=== PATIENT | female | born 1990 | race Caucasian/White ===

== ENCOUNTER 2021-01-16 01:35 | Emergency (ER) | payer OTHER ==
[~2021-01-16 01:35] MED LIST: OMNICEF 300 MG300 MG PO; PYRIDIUM100 MG PO; ZOFRAN4 MG PO
[2021-01-16 03:40] LABS: HEMOGLOBIN 15.4 gm/dl (12.3-15.3); RED BLOOD COUNT 5.24 M/UL (4.00-5.10); WHITE BLOOD COUNT 15.2 K/UL (4.5-11.0)
[2021-01-16 04:02] LABS: BUN/CREATININE RATIO 13 (0-10)
[2021-01-16] MEDS ORDERED: CEPHALEXIN500 M1 PO (08:40)
== END 2021-01-16 09:48 | disposition home or self-care (01) ==
LOC: ER1 01:35
PROVIDERS: Physician Assistant
DX: O23.41 Unspecified infection of urinary tract in pregnancy, first trimester (principal); O99.331 Smoking (tobacco) complicating pregnancy, first trimester; F17.290 Nicotine dependence, other tobacco product, uncomplicated; Z3A.01 Less than 8 weeks gestation of pregnancy; Z90.49 Acquired absence of other specified parts of digestive tract; Z88.5 Allergy status to narcotic agent; Z88.6 Allergy status to analgesic agent
CPT/HCPCS: 76830; 80053; 81001; 83690; 83735; 84702; 85025; 87086; 96374; 96375; 99284; J0696; J1200; J2765

== ENCOUNTER 2021-08-04 16:27 | Outpatient (CLI) | payer BC, OTHER ==
[~2021-08-04 16:27] MED LIST changes: +CEPHALEXIN500 M1 PO
[2021-08-04 18:37] LABS: HEMOGLOBIN 11.5 gm/dl (12.3-15.3); RED BLOOD COUNT 4.22 M/UL (4.00-5.10); WHITE BLOOD COUNT 14.6 K/UL (4.5-11.0)
[2021-08-04 18:58] LABS: BUN/CREATININE RATIO 11 (0-10)
== END 2021-08-04 19:41 | disposition home or self-care (01) ==
LOC: GENOP 16:27
PROVIDERS: Obstetrics & Gynecology
DX: O99.891 Other specified diseases and conditions complicating pregnancy (principal); O99.283 Endocrine, nutritional and metabolic diseases complicating pregnancy, third trimester; O99.343 Other mental disorders complicating pregnancy, third trimester; F32.A Depression, unspecified; E28.2 Polycystic ovarian syndrome; R10.2 Pelvic and perineal pain; R42 Dizziness and giddiness; Z3A.34 34 weeks gestation of pregnancy
CPT/HCPCS: 36415; 80053; 81001; 85025; G0463

== ENCOUNTER 2021-08-11 09:58 | Outpatient (CLI) | payer BC, OTHER | END 2021-08-11 12:44 | disposition home or self-care (01) | LOC: GENOP 09:58 | DX: O36.8330 Maternal care for abnormalities of the fetal heart rate or rhythm, third trimester, not applicable or unspecified (principal); O10.913 Unspecified pre-existing hypertension complicating pregnancy, third trimester; O99.613 Diseases of the digestive system complicating pregnancy, third trimester; K92.9 Disease of digestive system, unspecified; Z87.440 Personal history of urinary (tract) infections; Z88.5 Allergy status to narcotic agent; Z3A.35 35 weeks gestation of pregnancy | CPT/HCPCS: G0463 ==

== ENCOUNTER 2021-08-28 05:22 | Inpatient (IN) | payer BC, OTHER ==
[~2021-08-28] VITALS: Ht 167.6 cm; Wt 94.3 kg
[2021-08-28 05:55] LABS: HEMOGLOBIN 12.2 gm/dl (12.3-15.3); RED BLOOD COUNT 4.43 M/UL (4.00-5.10); WHITE BLOOD COUNT 13.6 K/UL (4.5-11.0)
[2021-08-28] MEDS ORDERED: TRANDATE 100 M100 MG PO (06:10)
[2021-08-28] MEDS ORDERED: OMEPRAZOLE20 MG PO (06:10)
[2021-08-28] MEDS ORDERED: PRENATAL VITAM1 EAC8 PO (06:10)
[2021-08-28] MEDS ORDERED: ASPIRIN EC81 MG PO (06:11)
[2021-08-28 06:22] LABS: BUN/CREATININE RATIO 13 (0-10)
[2021-08-28] MEDS ORDERED: IBUPROFEN600 MG PO (09:32)
[2021-08-28] MEDS ORDERED: ENDOCET 5-3251 EACH PO (09:32)
[2021-08-28] MEDS ORDERED: COLACE 100MG C100 MG PO (09:32)
[2021-08-29 03:19] LABS: HEMOGLOBIN 11.3 gm/dl (12.3-15.3)
== END 2021-08-30 18:28 | disposition home or self-care (01) | DRG 788 ==
LOC: OB 05:22
PROVIDERS: ADMIT Obstetrics & Gynecology
PROC: 10D00Z1 Extraction of Products of Conception, Low, Open Approach (ICD-10-PCS; principal; 2021-08-28 09:22)
PROC: 3E0234Z Introduction of Serum, Toxoid and Vaccine into Muscle, Percutaneous Approach (ICD-10-PCS; 2021-08-30)
DX: O34.211 Maternal care for low transverse scar from previous cesarean delivery (principal); O13.4 Gestational [pregnancy-induced] hypertension without significant proteinuria, complicating childbirth; O99.284 Endocrine, nutritional and metabolic diseases complicating childbirth; Z20.822 Contact with and (suspected) exposure to COVID-19; O99.344 Other mental disorders complicating childbirth; F41.9 Anxiety disorder, unspecified; F32.A Depression, unspecified; E28.2 Polycystic ovarian syndrome; Z37.0 Single live birth; Z3A.38 38 weeks gestation of pregnancy; Z28.310 Unvaccinated for COVID-19; Z79.899 Other long term (current) drug therapy; Z90.89 Acquired absence of other organs; Z82.49 Family history of ischemic heart disease and other diseases of the circulatory system; Z83.3 Family history of diabetes mellitus; Z80.8 Family history of malignant neoplasm of other organs or systems; Z81.8 Family history of other mental and behavioral disorders; Z23 Encounter for immunization
CPT/HCPCS: 36415; 80053; 81001; 82800; 85014; 85018; 85025; 90715; C9113; J0690; J1170; J1650; J2250; J2370; J2405; J2590; J7120

== ENCOUNTER → 2021-12-19 | Emergency (ER) | payer OTHER ==
[~2021-12-19] MED LIST changes: +ASPIRIN EC81 MG PO; +CEFUROXIME500 MG PO; +COLACE 100MG C100 MG PO; +ENDOCET 5-3251 EACH PO; +IBUPROFEN600 MG PO; +OMEPRAZOLE20 MG PO; +ONDANSETRON ODT4 MG SL; +PRENATAL VITAM1 EAC8 PO; +PROTONIX40 MG PO; +PYRIDIUM200 MG PO; +TORADOL 10 MG T10 MG PO; +TRANDATE 100 M100 MG PO
[2021-12-19 15:10] LABS: HEMOGLOBIN 13.7 gm/dl (12.3-15.3); RED BLOOD COUNT 4.9 M/UL (4.00-5.10); WHITE BLOOD COUNT 14.1 K/UL (4.5-11.0)
[2021-12-19 15:27] LABS: BUN/CREATININE RATIO 14 (0-10)
== END | disposition home or self-care (01) ==
LOC: ER1 13:34
PROVIDERS: Physician Assistant
DX: K42.9 Umbilical hernia without obstruction or gangrene (principal); N39.0 Urinary tract infection, site not specified; K22.89 Other specified disease of esophagus; K21.9 Gastro-esophageal reflux disease without esophagitis; I10 Essential (primary) hypertension; Z90.49 Acquired absence of other specified parts of digestive tract; Z20.822 Contact with and (suspected) exposure to COVID-19
CPT/HCPCS: 0240U; 80053; 81001; 83690; 84703; 85025; 87077; 87086; 87186; 96374; 99284; J1885; Q9967